=== PATIENT | male | born 1960 | race Caucasian/White ===

== ENCOUNTER 2023-01-01 13:22 | Emergency (ER) | payer MEDICAID, OTHER ==
[~2023-01-01] VITALS: Ht 167.6 cm; Wt 74.8 kg
[2023-01-01 13:55] VITALS: BP 144/80; PULSE 82; RESP 16; TEMP 98.5; O2SAT 96
[2023-01-01] MEDS ORDERED: LIDOCAINE HCL/PF 1% 10 MG/ML 5ML VIAL INFIL ONE (18:15)
[2023-01-01] MEDS ORDERED: BACITRACIN ZINC OINT UDPKT TOP ONE (18:15)
[2023-01-01] MEDS ORDERED: CEPH500T MT (18:38)
[2023-01-01] MEDS ORDERED: TETANUS, DIPHTHERIA, PERTUSSIS VAC/PF 0.5ML (>10YR OLD) IM ONE (18:45)
== END 2023-01-01 19:36 | disposition home or self-care (01) ==
LOC: ER 16:38
DX: S51.812A Laceration without foreign body of left forearm, initial encounter (principal); W26.8XXA Contact with other sharp object(s), not elsewhere classified, initial encounter; Y93.89 Activity, other specified; Y92.89 Other specified places as the place of occurrence of the external cause; Y99.8 Other external cause status
CPT/HCPCS: 73090; 73130; 12002; 99284; J3490; Z7610 ×2

== ENCOUNTER 2024-04-24 12:25 | Emergency (ER) | payer SELFPAY ==
[~2024-04-24] VITALS: Ht 165.1 cm; Wt 150.0 kg
[~2024-04-24 12:25] MED LIST: CEPH500T MT
[2024-04-24 12:31] VITALS: O2SAT 100
[2024-04-24 12:36] VITALS: BP 145/77; PULSE 75; RESP 16; TEMP 36.8; O2SAT 96
[2024-04-24] MEDS: TETANUS, DIPHTHERIA, PERTUSSIS VAC/PF 0.5ML (>10YR OLD) IM ONE (13:16)
[2024-04-24] MEDS ORDERED: BO1 TP (13:38)
== END 2024-04-24 13:57 | disposition home or self-care (01) ==
LOC: ER 12:25
DX: S61.411A Laceration without foreign body of right hand, initial encounter (principal); S99.922A Unspecified injury of left foot, initial encounter; S09.90XA Unspecified injury of head, initial encounter; Z79.899 Other long term (current) drug therapy; W19.XXXA Unspecified fall, initial encounter; Y93.55 Activity, bike riding; Y92.89 Other specified places as the place of occurrence of the external cause; Y99.8 Other external cause status
CPT/HCPCS: 73120; 73630; 90471; 90715; 99285